=== PATIENT | male | born 2000 | race Caucasian/White ===

== ENCOUNTER → 2024-06-24 11:19 | Outpatient (REF) | payer SELFPAY | LOC: ANHLAB 11:19 | PROVIDERS: Visit Provider Plastic Surgery | DX: R22.0 Localized swelling, mass and lump, head (principal) | CPT/HCPCS: 88304 ==

== ENCOUNTER 2025-01-08 17:09 | Emergency (ER) | payer OTHER, SELFPAY ==
[2025-01-08 17:24] VITALS: BP 122/71; PULSE 86; RESP 16; TEMP 36.8; O2SAT 98
[2025-01-08 17:30] VITALS: PULSE 86; RESP 16; O2SAT 98
--- NOTE | 2025-01-08 17:44 | ED_ITS ---
HPI - URI/Sore Throat General Chief Complaint: Upper Respiratory Infection Stated Complaint: lungs hurting cough Source: patient, RN notes reviewed and old records reviewed Mode of arrival: ambulatory Limitations: no limitations History of Present Illness HPI Narrative: 24 old male presents to [facility] care with complaints of Sunday experiencing cough, chills, body aches and fevers, He reports that his symptoms have improved the last 2 days and he has not had recent fevers but he has lingering cough and his lungs hurt. Patient reports that cough is productive at times of white phlegm. Patient reports that he has taken some DayQuil and NyQuil for his symptoms. MD elicited complaint: cough, rhinorrhea, nasal congestion and other (lungs hurt) Onset (ago): day(s) (6 days) Severity: mild Description of mucous: other (white) Able to tolerate fluids by mouth: Yes Treatments prior to arrival: other (DayQuil and NyQuil) Related Data Home Medications ?Medication ?Instructions ?Recorded ?Confirmed ?Last Taken ?Type buspirone 5 mg tablet 5 mg PO BID 06/24/24 Unknown History lamotrigine 150 mg tablet 75 mg PO DAILY 06/24/24 Unknown History aripiprazole 5 mg tablet mg 01/08/25 Unknown History trazodone 50 mg tablet mg 01/08/25 Unknown History Allergies Allergy/AdvReac Type Severity Reaction Status Date / Time No Known Allergies Allergy Verified 01/08/25 17:15 Review of Systems Review of Systems: CONSTITUTIONAL: Denies present malaise, chills, sweats, or fever. EYES: Denies visual changes, redness, or discharge. ENT: Reports rhinorrhea, congestion, no sinus pain, no otalgia and no sore throat. CARDIOVASCULAR: Denies chest pain, palpitations, or edema. RESPIRATORY: Reports cough.? Denies dyspnea. states his 'lungs hurt' GASTROINTESTINAL: Denies abdominal pain, nausea, vomiting, diarrhea SKIN: Denies rash or itching. MUSCULOSKELETAL: Denies myalgia. NEUROLOGIC: Denies headache. All systems reviewed & are unremarkable except as noted in HPI and below PMFSH Past Medical History Medical History (Updated 01/10/25 @ 12:59 by Jesenia Todd NP) Lipoma of head excised Bipolar disorder Anxiety and depression Social History Social History (Updated 01/10/25 @ 12:57 by Jesenia Todd NP) Smoking status: Current every day smoker Tobacco type: e-cigarettes/vaping Alcohol use details: no alcohol use Substance use: current Substance use type: marijuana Gender identity (if verbalized by the patient): Male Comments At time of signature, agree with nursing past medical, surgical, social and family history. There is no relevant family history pertinent to the presenting complaint Exam Narrative: GENERAL: Well-appearing, well-nourished, and in no acute distress. HEAD: Normocephalic EYES: PERRLA, conjunctivae clear ENT: Nares clear, turbinates edematous and erythematous, clear discharge. Mucous membranes moist. TM pearly mccormick with dull light reflex bilaterally; no tragal tenderness. Oropharynx erythematous without lesions. Tonsils not enlarged and without exudate, no drooling, no hoarseness, no trismus, uvula midline.scant post nasal drainage NECK: Supple. No lymphadenopathy CHEST: Clear to auscultation, breath sounds equal. No wheezing, rhonchi, rales, or stridor. No respiratory distress, speaks in full sentences.productive cough, SAO2 98% on room air HEART: Regular rate and rhythm. No murmur heard. SKIN: Warm, dry, no rash. NEURO: Alert and oriented x3. PSYCH: Normal mood and affect Course Course Emergency Course: Patient is aware of diagnosis, understands and agrees to treatment plan.? Anticipatory guidance given.? Patient agrees to follow-up as directed and is aware of reasons to seek care at the emergency department. Portions of this record may have been created with voice recognition software Level of Care: Express Care Visit Vital Signs Vital signs: Vital Signs Temperature 36.8 C 01/08/25 17:24 Pulse Rate 86 01/08/25 17:24 Respiratory Rate 16 01/08/25 17:24 Blood Pressure 122/71 01/08/25 17:24 Pulse Oximetry 98 01/08/25 17:24 Oxygen Delivery Room Air 01/08/25 17:24 Temperature 36.8 C 01/08/25 17:24 Pulse Rate 86 01/08/25 17:30 Respiratory Rate 16 01/08/25 17:30 Blood Pressure 122/71 01/08/25 17:24 Pulse Oximetry 98 01/08/25 17:30 Oxygen Delivery Room Air 01/08/25 17:24 Reviewed MDM - URI/Sore Throat MDM Narrative Medical decision making narrative: Differential diagnosis considered: Landin virus, strep pharyngitis, allergic rhinitis, upper respiratory tract infection, sinusitis, rhinosinusitis, nasopharyngitis. viral pharyngitis, otitis media, otitis externa, pneumonia, bronchitis, viral cough syndrome, viral syndrome, and influenza.? Exam findings show no acute concerns or changes; patient is non-toxic appearing and is in no distress.? Patient is appropriate for outpatient treatment and follow-up. Differential Diagnosis Differential diagnosis: Likely upper respiratory infection, viral infection, influenza and other (cough) Medical Records Attestation: I reviewed the patient's medical records. Lab Data Attestation: I reviewed the patient's lab results. Critical Care Time Critical Care Time Critical Care Time: No Discharge Plan Discharge Clinical Impression: Cough in adult patient Patient Disposition: Home, Self-Care Condition: Stable Instructions: Antibiotic Form, Acute Cough (ED) Additional Instructions: Increase fluids especially juices and water [id number] cough and cold medicine of your choice for your symptoms Zyrtec Claritin or Ragini daily Cough tablets as directed for cough--do not bite, chew or suck on--swallow whole Delsym or Robitussin cough syrup If your symptoms persist, change or worsen significantly before you can contact your personal physician then please, without delay, go to the emergency department for further evaluation. Follow-up with your PCP in the next 5-7 days or sooner if needed Steroids as directed--take with food heat to the face 20-30 minutes 4-6 times a day for pain Salt water gargles, throat lozenges or throat sprays as desired Tylenol or ibuprofen for any fever pain Patient Language: Amharic Prescriptions: New methylprednisolone [Medrol (Trevin)] 4 mg tablets,dose pack See Rx Instructions .ROUTE .COMPLEX Qty: 21 0RF Rx Instructions: orally per package directions benzonatate 200 mg capsule 200 mg PO TID PRN (Reason: cough) Qty: 20 0RF No Action trazodone 50 mg tablet aripiprazole 5 mg tablet lamotrigine 150 mg tablet 75 mg PO DAILY buspirone 5 mg tablet 5 mg PO BID Follow-up/Referrals: PHYSICIAN,[employer]PER[employer]OR [Primary Care Provider] - Time of Disposition: 17:55 Quality Oanh Coma Scale Eyes: Open Verbal: Oriented and Alert Motor: Follows Commands [place] Coma Total Score: 15
== END 2025-01-08 18:00 | disposition home or self-care (01) ==
PROVIDERS: Emergency Provider Registered Nurse
DX: R05.9 Cough, unspecified (principal); F17.210 Nicotine dependence, cigarettes, uncomplicated; Z79.899 Other long term (current) drug therapy
CPT/HCPCS: 99213; G0463